=== PATIENT | female | born 1965 | race Caucasian/White ===

== ENCOUNTER 2016-12-12 20:49 | Emergency (ER) | payer OTHER ==
[2016-12-12] MEDS ORDERED: ASPIRIN 81 MG CHEW TAB ONE (21:16)
[2016-12-13] MEDS ORDERED: LIDOCAINE 2% VISC 15 ML UDC ONE (00:56)
[2016-12-13] MEDS ORDERED: ALU/MAG/SIM 30 ML UDC ONE (00:56)
== END 2016-12-13 01:43 | disposition home or self-care (01) ==
LOC: ER 20:49
DX: R07.9 Chest pain, unspecified (principal)
CPT/HCPCS: 36415; 71010; 80053; 82550; 83690; 83735; 84484; 85025; 85610; 85730; 93005